=== PATIENT | male | born 1995 | race Two or more races ===

== ENCOUNTER → 2019-09-20 | Emergency (ER) | payer MEDICAID ==
[~2019-09-20] VITALS: Ht 175.3 cm; Wt 72.6 kg
[~2019-09-20] MED LIST: IBUPROFEN 400 MG TABLET ONE; IBUPROFEN 400 MG TABLET PO ONE
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
--- NOTE | 2019-09-20 23:29 | NUR ---
XRAY AT BEDSIDE
--- NOTE | 2019-09-21 00:18 | NUR ---
Patient discharged to home in stable condition. Written and verbal after care instructions given. Patient verbalizes understanding of instruction and RX. vss. No acute distress noted. Pt ambulated with steady gait.
--- NOTE | 2019-09-21 00:18 | NUR ---
emt at bedside for shoulder sling
[2019-09-21 00:19] VITALS: BP 122/76
== END | disposition home or self-care (01) ==
LOC: ER 23:06
DX: S43.102A Unspecified dislocation of left acromioclavicular joint, initial encounter (principal); S40.212A Abrasion of left shoulder, initial encounter; V89.9XXA Person injured in unspecified vehicle accident, initial encounter; Y93.89 Activity, other specified; Y92.89 Other specified places as the place of occurrence of the external cause; Y99.8 Other external cause status
CPT/HCPCS: 73030-TC

== ENCOUNTER 2019-09-22 20:04 | Emergency (ER) | payer MEDICAID ==
--- NOTE | 2019-09-22 20:16 | NUR ---
PT COMING IN FOR HIS PRESCRIPTION TO BE DATED. IS AWARE. WILL REISSUE NEW PRECRIPTION. DOES NOT WANT TO SEE .
== END 2019-09-22 20:19 | disposition home or self-care (01) ==
LOC: ER 20:07
DX: Z76.0 Encounter for issue of repeat prescription (principal)